=== PATIENT | male | born 1995 | race Caucasian/White ===

== ENCOUNTER 2018-03-14 16:58 | Emergency (ER) | payer OTHER ==
[~2018-03-14] VITALS: Ht 185.4 cm; Wt 62.4 kg
[2018-03-14 17:01] VITALS: BP 133/67; PULSE 84; RESP 20; Ht 185.4 cm; Wt 62.4 kg
[2018-03-14] MEDS ORDERED: HYDROCODONE/APAP (5/325) TAB PO ONE (18:00)
[2018-03-14] MEDS ORDERED: NAPR-985 PO (18:36)
--- NOTE | 2018-03-14 20:01 | ERD ---
ER Documentation Chief Complaint Chief Complaint SEVERE HEADACHE WOKE UP FROM SLEEPING, NECK PAIN NO PHOTOPHOBIA/NECK SUPPLE HPI Patient is a 22-year-old male presenting to the emergency department complaining of frontal headache which awoke him from sleep at approximately 4 AM today. The pain is rated 5/10 in severity and waxes and wanes. The patient states when he woke up this morning his headache was a 10/10 in severity. The patient took ibuprofen without significant relief. Patient also reports some photosensitivity. Pain radiates down to his neck. Patient does endorse some neck stiffness. He denies any nausea, vomiting, fevers, chills, or other symptoms at this time. ROS All systems reviewed and are negative except as per history of present illness. Medications Home Meds Active Scripts Naproxen* (Naprosyn*) 500 Mg Tablet, 500 MG PO BID PRN for PAIN AND/OR INFLAMMATION, #30 TAB Prov:INDIRA RODRIGUEZ PA-C 03/14/18 Allergies Allergies: Coded Allergies: No Known Allergy (Unverified , 03/14/18) PMhx/Soc Medical and Surgical Hx: pt denies Medical Hx History of Surgery: Yes (tonsillectomy) Hx Miscellaneous Medical Probl: Yes ("4 dislocated disks in neck") Hx Alcohol Use: No Hx Substance Use: No Hx Tobacco Use: No FmHx Family History: No diabetes Physical Exam Vitals Vital Signs Date Temp Pulse Resp B/P (MAP) Pulse Ox O2 O2 Flow FiO2 Time Delivery Rate 03/14/18 99.1 84 20 133/67 97 17:01 (89) Physical Exam Const: No acute distress Head: Atraumatic Eyes: Normal Conjunctiva ENT: Normal External Ears, Nose and Mouth. Neck: Full range of motion. No meningismus. Resp: Clear to auscultation bilaterally Cardio: Regular rate and rhythm, no murmurs Abd: Soft, non tender, non distended. Normal bowel sounds Skin: No petechiae or rashes Back: No midline or flank tenderness Ext: No cyanosis, or edema Neuro: M/S: Alert and oriented Face: EOMI, face and pharynx with normal sensation and function Motor: Normal strength throughout Sensation: Normal sensation throughout Speech: Normal Cerebel: Normal coordination Normal gait Normal finger to nose Psych: Normal Mood and Affect Results 24 hrs Current Medications Medications Dose Sig/Marybeth Start Time Status Last (Trade) Ordered Route PRN Stop Time Admin Dose Reason Admin 1 tab ONCE ONCE 03/14/18 DC 03/14/18 Acetaminophen PO 18:00 03/14/18 17:50 / 18:01 Hydrocodone Bitart ([place] (5/325)) Procedures/MDM Patient is a 22-year-old male presenting to the emergency department with complaints of headache. Differential diagnoses include meningitis, intracranial hemorrhage, subarachnoid hemorrhage, CVA, TIA, tension headache, migraine, cluster headache, and others. I doubt any life threatening etiology at this time. CT scan of the head was unremarkable. Patient improved in the department after treatment with [place]. Pt is to follow-up with primary care physician and return here immediately for any new or worsening symptoms. No evidence of life-threatening pathology at time of discharge. Pt/family in agreement with discharge plan/diagnosis. Pt/family advised to return im mediately with any new or worsening symptoms. Follow-up with primary care physician within the next 1-2 days. Disclaimer: Inadvertent spelling and grammatical errors are likely due to EHR/dictation software use and do not reflect on the overall quality of patient care. Also, please note that the electronic time recorded on this note does not necessarily reflect the actual time of the patient encounter. Departure Diagnosis: Primary Impression: Headache Headache type: unspecified Headache chronicity pattern: acute headache Intractability: not intractable Qualified Codes: R51 - Headache Condition: Fair Patient Instructions: Self-Care for Headaches Referrals: JON SILVA MD= (PCP) Additional Instructions: Call your primary care doctor TOMORROW for an appointment during the next 1-2 days.See the doctor sooner or return here if your condition worsens before your appointment time. INDIRA RODRIGUEZ PA-C Mar 14, 2018 20:01
== END 2018-03-14 19:10 | disposition home or self-care (01) ==
LOC: FTE 16:58
DX: R51 Headache (principal)
CPT/HCPCS: 70450